=== PATIENT | male | born 1980 | race African-American/Black ===

== ENCOUNTER 2020-11-09 14:22 | Emergency (ER) | payer OTHER, SELFPAY ==
[2020-11-09 15:03] VITALS: BP 124/71; PULSE 55; RESP 18; TEMP 37; O2SAT 100; BMI 25.8
[2020-11-09 16:27] LABS: Influenza A PCR NEGATIVE (Negative); Influenza B PCR NEGATIVE (Negative); Resp Syncy Virus RNA Qual PCR NEGATIVE (Negative); SARS COV2 PCR INHOUSE NEGATIVE (Negative)
--- NOTE | 2020-11-09 19:53 | ED.URI ---
HPI - URI/Sore Throat General Chief Complaint: Upper Respiratory Symptoms Stated Complaint: mold exposure - chest pain Time Seen by Provider: 11/09/20 18:50 Source: patient Mode of arrival: ambulatory Limitations: no limitations History of Present Illness HPI Narrative: Patient comes to emergency room complaining of cough, wheezing. Patient states that his apartment is full of mold. Patient denies fever or chills. Patient states that he feels short of breath, states it upsets him because he cannot smoke marijuana. Related Data Allergies Allergy/AdvReac Type Severity Reaction Status Date / Time shellfish derived Allergy Swelling Verified 11/09/20 15:03 Review of Systems Review of Systems: Constitutional : No Weight loss, No Fever, No Chills, No Night Sweats, complaining of chronic fatigue ENT/Mouth : No Hearing loss, No Ear Pain, No Nasal Congestion, No Sinus Pain, No Hoarseness, No sore throat, No Rhinorrhea, No Swallowing Difficulty Eyes: No Eye Pain, No Swelling, No Redness, No Foreign Body, No Discharge, No Vision Changes Cardiovascular : No Chest Pain, no orthopnea, no palpitations Respiratory : Complaining of cough, denies sputum production complaining of wheezing, complaining of shortness of breath Gastrointestinal : No Nausea, No Vomiting, No Diarrhea, No Constipation, No abdominal Pain, No Hematochezia, No Melena Genitourinary : no irregular bleeding, No Dysuria, No Urinary Frequency, No Hematuria, No Urinary Incontinence, No Urgency, No Flank Pain, No Urinary Flow Changes, No Hesitancy Musculoskeletal : No joint pain, No Myalgias, No Joint Swelling Skin : No Skin Lesions, No rash Neuro : No Weakness, No Numbness, No Paresthesias, No Loss of Consciousness, No Dizziness, No Headache Psych : No Anxiety/Panic, No Depression, No SI/HI/AH/VH, No Social Issues, Heme/Lymph: No Bruising, No Bleeding,No Lymphadenopathy Endocrine : No Polyuria, No Polydipsia, No Temperature Intolerance PMFSH Social History Social History Advance Directives: No Advance Directives Information Provided: No Physical Exam Vital Signs: Vital Signs: Last Vital Signs Temp 98.6 F 11/09/20 15:03 Pulse 55 11/09/20 15:03 Resp 18 11/09/20 15:03 BP 124/71 11/09/20 15:03 Pulse Ox 100 11/09/20 15:03 Body Mass Index 25.8 Const: Other: Appearance: Alert. Oriented X3. No acute distress. Eyes: Pupils equal, round and reactive to light. ENT: Pharynx normal. Neck: Normal inspection. Neck supple. No lymph nodes noted. No crepitus CVS: Normal heart rate and rhythm. Pulses normal. Normal S1 and S2 Respiratory: No respiratory distress. Breath sounds normal. No Wheezing. No rales Abdomen: Soft and nontender. No rigidity. No distention. good BS x4 Skin: Skin warm and dry. Normal skin color. Normal skin turgor. Extremities: No lower extremity edema. No Lacerations. No Rash Neuro: Oriented X 3. No motor deficit. No sensory deficit. Moving all extermities. No slurred speech. Course Course Course Narrative: I discussed with the patient that his COVID test is negative. I also recommended to the patient that we should be doing chest x-ray, blood work, including a D-dimer. Patient states that he no longer wants to wait for all the blood work results and chest x-ray. Patient states that he wants to leave. Patient's vitals are normal, I discussed with the patient to discuss a mole situation with his landlord. Patient refusing any further workup. Patient leaving AMA I was informed by the patient's charge nurse that when he was waiting for his fevers, patient went up to the registration staff and calling bitches, being belligerent. Security escorted him out MDM - URI/Sore Throat Lab Data Labs: Lab Results 11/09/20 Range/Units 15:07 Coronavirus (PCR) NEGATIVE (Negative) Influenza Type A (PCR) NEGATIVE (Negative) Influenza Type B (PCR) NEGATIVE (Negative) RSV RNA Qual (PCR) NEGATIVE (Negative) Discharge Plan Discharge Clinical Impression: Dyspnea Patient Disposition: Left Against Medical Advice Instructions: Dyspnea (ED) Additional Instructions: Please follow-up with your primary care physician tomorrow. If you have any worsening or new symptoms, please return to the emergency room or call 911 Stand Alone Forms: Against Medical Advice Interventions: LWBS Worksheet Last Done: 11/09/20 18:55
--- NOTE | 2020-11-09 19:59 | PC.NURSE ---
per provider: Patient left without signing AMA forms.
== END 2020-11-09 20:00 | disposition left against medical advice (07) ==
PROVIDERS: Emergency Provider Emergency Medicine; PCP Nurse Practitioner Family
DX: R06.00 Dyspnea, unspecified (principal); Z20.822 Contact with and (suspected) exposure to COVID-19
CPT/HCPCS: 0241U; 36415; 99281; 99283

== ENCOUNTER 2023-04-11 00:11 | Emergency (ER) | payer OTHER, SELFPAY ==
[2023-04-11 00:23] VITALS: BP 137/77; PULSE 69; RESP 16; TEMP 36.6; O2SAT 95; BMI 27.6
[2023-04-11 00:38] VITALS: BP 126/70; PULSE 54; RESP 16; TEMP 36.7; O2SAT 96
--- NOTE | 2023-04-11 00:52 | ED_ITS ---
HPI - General Adult General Chief complaint: General Medical Stated complaint: ?Animal bite Time Seen by Provider: 04/11/23 00:33 Source: patient Mode of arrival: ambulatory Limitations: no limitations History of Present Illness HPI narrative: patient comes to the emergency room complaining of a tender nodule in the back. Patient states that he believes that something bit him, insect? . Patient denies injuries anywhere else. Patient denies fevers or chills Related Data Previous Rx's Medication Instructions Recorded ibuprofen 600 mg tablet 600 mg PO TID PRN fever or pain 04/11/23 #14 tabs sulfamethoxazole 800 1 tab PO BID #14 tabs 04/11/23 mg-trimethoprim 160 mg tablet (Bactrim DS) Allergies Allergy/AdvReac Type Severity Reaction Status Date / Time shellfish derived Allergy Swelling Verified 04/11/23 00:22 Review of Systems Review of Systems: Constitutional : No Weight loss, No Fever, No Chills, No Night Sweats, No Fatigue, No Malaise ENT/Mouth : No Hearing loss, No Ear Pain, No Nasal Congestion, No Sinus Pain, No Hoarseness, No sore throat, No Rhinorrhea, No Swallowing Difficulty Eyes: No Eye Pain, No Swelling, No Redness, No Foreign Body, No Discharge, No Vision Changes Cardiovascular : No Chest Pain, No SOB, No Dyspnea on Exertion, No Orthopnea, No Edema, No Palpitations Respiratory : No Cough, No Sputum, No Wheezing, No Smoke Exposure, No Dyspnea Gastrointestinal : No Nausea, No Vomiting, No Diarrhea, No Constipation, No abdominal Pain, No Hematochezia, No Melena Genitourinary : no irregular bleeding, No Dysuria, No Urinary Frequency, No Hematuria, No Urinary Incontinence, No Urgency, No Flank Pain, No Urinary Flow Changes, No Hesitancy Musculoskeletal : No joint pain, No Myalgias, No Joint Swelling Skin : complaining of painful nodule in the back /insect bite Neuro : No Weakness, No Numbness, No Paresthesias, No Loss of Consciousness, No Dizziness, No Headache Psych : No Anxiety/Panic, No Depression, No SI/HI/AH/VH, No Social Issues, Heme/Lymph: No Bruising, No Bleeding,No Lymphadenopathy Endocrine : No Polyuria, No Polydipsia, No Temperature Intolerance PMFSH Social History Social History Smoked in Last 30 Days: No Use of substances other than those prescribed or required for medical reasons: Yes Substance Use Type: Marijuana Substance Use Frequency: Chronic Longstanding Physical Exam ED Vital Signs: Vital Signs - 24 hr 04/11/23 00:23 04/11/23 00:38 Temperature 97.9 F 98.1 F Pulse Rate 69 54 Respiratory Rate 16 16 Blood Pressure 137/77 126/70 Pulse Oximetry 95 96 Oxygen Delivery Method Room Air Room Air BMI result Body Mass Index 27.6 Const Other: Appearance: Alert. Oriented X3. No acute distress. Eyes: Pupils equal, round and reactive to light. ENT: Pharynx normal. Neck: Normal inspection. Neck supple. No lymph nodes noted. No crepitus CVS: Normal heart rate and rhythm. Pulses normal. Normal S1 and S2 Respiratory: No respiratory distress. Breath sounds normal. No Wheezing. No rales Abdomen: Soft and nontender. No rigidity. No distention. Skin: 1 cm x 1 cm erythema in the back with a small opening. Small eschar on top Extremities: No lower extremity edema. No Lacerations. No Rash Neuro: Oriented X 3. No motor deficit. No sensory deficit. Moving all extremi ties. No slurred speech. CN 2 through 12 grossly intact Psych: calm, cooperative, normal affect Course Course Course Narrative: - the eschar was unroofed with a 16 gauge needle, a small amount of pus came out, less than 1 mL - patient was given p.o. antibiotics, Bactrim Medical Decision Making Medical Decision Making MDM Narrative: bedside ultrasound shows cobblestone like pattern, no deep abscess. Differential Diagnosis Differential Diagnoses: The differential diagnosis associated with the presentation includes ( insect bite, abscess, cellulitis) Discharge Plan Discharge Clinical Impression: Abscess Patient Disposition: Home, Self-Care Instructions: Abscess (ED) Additional Instructions: Please follow-up with your primary care physician tomorrow. If you have any worsening or new symptoms, please return to the emergency room or call 911 Prescriptions: New sulfamethoxazole-trimethoprim [Bactrim DS] 800-160 mg tablet 1 tab PO BID Qty: 14 0RF ibuprofen 600 mg tablet 600 mg PO TID PRN (Reason: fever or pain) Qty: 14 0RF
[2023-04-11] MEDS: Sulfamethox/Trimeth 800/160 TABLET 1 TAB PO (01:02)
[2023-04-11] MEDS: Acetaminophen 325 MG TABLET 650 MG PO (01:02)
== END 2023-04-11 01:05 | disposition home or self-care (01) ==
LOC: HO.ED 01:02
PROVIDERS: Emergency Provider Emergency Medicine
DX: L02.212 Cutaneous abscess of back [any part, except buttock and flank] (principal)
CPT/HCPCS: 99284

== ENCOUNTER 2025-01-05 22:20 | Emergency (ER) | payer OTHER, SELFPAY ==
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
[2025-01-05 22:22] VITALS: BP 115/55; PULSE 77; RESP 14; TEMP 35.8; O2SAT 96; BMI 27.4
--- OUTSIDE RECORDS SUMMARY | 2025-01-05 22:41 | XMS_ITS | Encounter Summary ---
Author Organization [id number] Address [address] [place] [address] Care Team Providers Care Arcade Games Mechanic Name Role Phone Marco A Alejo MD Primary Care Provider Unavail able Encounter Details Date Type Department Care Team Description 10/22/2017 Release of Information Medical Records [address] [place] [id number] Abstract, Provider Social History Tobacco Use Types Packs/Day Years Used Date Smoking Tobacco: Every Day Smokeless Tobacco: Never Comments:marijuana Alcohol Use Standard Drinks/Week Comments Yes 0 (1 standard drink = 0.6 oz pur e alcohol) cognac every now and then Sex Assigned at Date Recorded Not on file documented as of this encounter Plan of Treatment Not on file documented as of this encounter Visit Diagnoses Not on filedocumented in this encounter Care Teams Arcade Games Mechanic Relationship Specialty Start Date End Date Marco A Alejo MD PCP - General Internal Medicine 08/12/16 documented as of this encounter
--- OUTSIDE RECORDS SUMMARY | 2025-01-05 22:41 | XMS_ITS | Clinical Summary ---
Author Organization [facility] ity Address [address] [place] [address] Care Team Providers Care Load Test Mechanic Name Role Phone Marco A Alejo MD Primary Care Provider Unavaila ble Social History Tobacco Use Types Packs/Day Years Used Date Smoking Tobacco: Never Assessed Sex and Gender Information Value Date Recorded Sex Assigned at Not on file Legal Sex Male 5:39 AM EST Gender Identity Not on file Sexual Orientation Not on file Plan of Treatment Health Maintenance Due Date Last Done Comments DTaP,Tdap,and Td Vaccines (1 - Tdap) 2000 Hepatitis B Vaccines (1 of 3 - 19+ 3-dose series) 2000 HPV Vaccines (1 - 3-dose SCD M series) 2008 Cholesterol Screening (Lipid Panel) 11/09/2023 HIV Screening 11/09/2023 Hepatitis C Screening 11/09/2023 Social Influencers of Health Screening 11/09/2023 Depression Screening 03/16/2024 COVID-19 Vaccine ( - 2023-2 5 season) 2024 Influenza Vaccine (#1) 2024 RSV Immunization Adult Patie nts (1 - 1-dose 75+ series) 2056 HIB Vaccines Aged Out No longer eligi ble based on patient's age to complete this topic Hepatitis A Vaccines Aged Out No long er eligible based on patient's age to complete this topic IPV Vaccines Aged Out No longer eligi ble based on patient's age to complete this topic MMR Vaccines Aged Out No longer eligi ble based on patient's age to complete this topic Meningococcal ACWY Vaccine Aged Out N o longer eligible based on patient's age to complete this topic Meningococcal B Vaccine Aged Out No l onger eligible based on patient's age to complete this topic Pneumococcal Vaccine: Pediat rics (0 to 5 Years) and At-Risk Patients (6 to 49 Years) Aged Out No longer eligible b ased on patient's age to complete this topic RSV Immunization Patients Un rhonda 20 months Aged Out No longer eligible b ased on patient's age to complete this topic Varicella Vaccines Aged Out No longer eligible based on patient's age to complete this topic Advance Directives Documents on File Type Date Recorded Patient [employer] Tier Expl anation Health Care Decision (hx) 04/14/2023 [facility]OX[facility] Care Teams Load Test Mechanic Relationship Specialty Start Date End Date Marco A Alejo MD PCP - General Internal Medicine 08/12/16
--- OUTSIDE RECORDS SUMMARY | 2025-01-05 22:41 | XMS_ITS | Clinical Summary ---
Author Organization [facility] Address [address] [place] [address] Care Team Providers Care Double Ending Machine Operator Name Role Phone Marco A Alejo MD Primary Care Provider Unavail able Allergies No known active allergies Medications No known medications Active Problems Problem Noted Date Depression 09/08/2016 Family History Medical History Relation Name Comments Other Father Other Mother both parents de ceased from complications from HIV/AIDS Relation Name Status Comments Father Mother Social History Tobacco Use Types Packs/Day Years Used Date Smoking Tobacco: Every Day Smokeless Tobacco: Never Comments:marijuana Alcohol Use Standard Drinks/Week Comments Yes 0 (1 standard drink = 0.6 oz pur e alcohol) cognac every now and then Sex Assigned at Date Recorded Not on file Last Filed Vital Signs Vital Sign Reading Time Taken Comments Blood Pressure 122/82 09/08/2016 1:44 PM EDT Pulse 78 09/08/2016 1:44 PM EDT Temperature - - Respiratory Rate - - Oxygen Saturation - - Inhaled Oxygen Concentration - - Weight 78.8 kg (173 lb 11.2 oz) 09/08/2016 1:44 PM EDT Height 172.7 cm (5' 8 ) 09/08/2016 1:44 PM EDT Body Mass Index 26.41 09/08/2016 1:44 PM EDT Plan of Treatment Health Maintenance Due Date Last Done Comments Covid-19 Vaccine (#1) 1981 TOBACCO CHECK/ADVISE 1999 DTAP/TDAP/TD (1 - Tdap) 2000 CHOLESTEROL SCREENING 2001 BASELINE HEALTH EXAM 40-64 2021 BMI CHECK/ADVISE 03/16/2024 INFLUENZA (#1) 2024 PNEUMOCOCCAL VACCINE FOR HIGH RISK PATIENTS (#1) 04/06 Care Teams Double Ending Machine Operator Relationship Specialty Start Date End Date Marco A Alejo MD PCP - General Internal Medicine 08/12/16
--- OUTSIDE RECORDS SUMMARY | 2025-01-05 22:41 | XMS_ITS | Clinical Summary ---
Author Organization [facility] Address [address] [place] [address] Care Team Providers Care System Development Manager Name Role Phone MominCynthia NP Primary Care Provider [phone] Encounters Date Type Department Care Team Description 10/24/2024 2:30 PM EDT Office Visit [facility], [address] [place] [phone] Amita Daniel MD Chronic kidney disease, stage 2 (mild) (Primary Dx) 10/11/2024 Orders Only [facility] [address] [place] [phone] Elise Salinas MA Stage 3 chronic kidney disease, not otherwise specified (HCC) (Primary Dx); Anemia in chronic kidney disease from Last 3 Months Social History Tobacco Use Types Packs/Day Years Used Date Smoking Tobacco: Never Assessed Sex and Gender Information Value Date Recorded Sex Assigned at Not on file Legal Sex Male 10:07 AM EST Gender Identity Not on file Sexual Orientation Not on file Last Filed Vital Signs Vital Sign Reading Time Taken Comments Blood Pressure 110/60 10/24/2024 4:21 PM EDT Pulse - - Temperature - - Respiratory Rate - - Oxygen Saturation - - Inhaled Oxygen Concentration - - Weight - - Height - - Body Mass Index - - Plan of Treatment Upcoming Encounters Date Type Department Care Team (Late st Contact Info) Description 10/30/2025 1:30 PM EDT Office Visit [facility] [address] [place] [phone] Amita Daniel MD [address] [place] [address] [place] [address] Health Maintenance Due Date Last Done Comments Hepatitis B Vaccine (1 of 3 - 19+ 3-dose series) 04/06 Pneumococcal Vaccine: Peds ( 0 to 5 Years) and At-Risk Patients (6 to 49 Years) (1 of 2 - PCV) 2000 Influenza Vaccine (#1) 2024 Procedures Procedure Name Priority Date/Time Associated Diagnosis Comments CBC AND DIFFERENTIAL Routine 11/01/2024 11:06 AM EDT Chronic kidney disease, stage 2 (mild) URINE ALBUMIN / CREATININE RATIO Routine 11/01/2024 11:06 AM EDT Chronic kidney disease, stage 2 (mild) URINALYSIS WITH MICROSCOPIC Routine 11/01/2024 11:06 AM EDT Chronic kidney disease, stage 2 (mild) RENAL FUNCTION PANEL Routine 11/01/2024 11:06 AM EDT Chronic kidney disease, stage 2 (mild) MICROSCOPIC EXAMINATION - DO NOT USE Routine 11/01/2024 11:06 AM EDT from Last 3 Months Results * Microscopic Examination (11/01/2024 11:06 AM EDT) WBC, Urine None seen 0 - 5 /hpf [facility] RBC, Urine None seen 0 - 2 /hpf [facility] Squamous Epithelial, Urine None seen 0 - 10 /hpf [facility] Casts None seen None seen /lpf [facility] Bacteria, Urine None seen None seen/Few [facility] 11/01/2024 11:0 6 AM EDT 11/01/2024 Iglesia Donohue MD LAB MICROBIOLOGY - GENERAL ORDERABLES Final Result Performing Organization Address City[facility]/ZIP Co de Phone Number [facility] [address] [place] [address] * Urine Albumin / Creatinine Ratio (11/01/2024 11:06 AM EDT) Creatinine, Ur 107.4 Not Estab. mg/dL [facility] Albumin, Urine 3.0 Not Estab. ug/mL [facility] Albumin/Creatin ine Ratio 3 0 - 29 mg/g creat [facility] Comment: Normal: 0 - 29 Moderately increased: 30 - 300 Severely increased: >300 Urine Urine specimen obtained by clean catch procedure / Unknown 11/01/2024 11:06 AM EDT 11/01/2024 Iglesia Donohue MD LAB URINE ORDERABLES Final Result Performing Organization Address [facility] Co de Phone Number [facility] [address] [place] [address] * Urinalysis with microscopic (11/01/2024 11:06 AM EDT) Specific [place], Urine 1.011 1.005 - 1.030 [facility] [phone] pH Urine 6.5 5.0 - 7.5 [facility] Color, Urine Yellow Yellow [facility] Appearance Urine Clear Clear [facility] WBC Esterase Urine Negative Negative [facility] Protein, Ur Negative Negative/Tra ce [facility] [phone] Glucose, Ur Negative Negative [facility] Ketones, Urine Negative Negative [facility] [phone] Blood Urine Negative Negative [facility] Bilirubin Urine Negative Negative [facility] Urobilinogen Urine 0.2 0.2 - 1.0 mg/dL [facility] Nitrite, Urine Negative Negative [facility] Microscopic Examination Comment [facility] Comment:Microscopic follows if indicated. Other Microsc. Observations See below: [facility] [phone] Comment:Microscopic was fernando cated and was performed. Urine Urine specimen obtained by clean catch procedure / Unknown 11/01/2024 11:06 AM EDT 11/01/2024 us Iglesia Donohue MD LAB URINE ORDERABLES Final Result [facility] [address] [place] [address] * CBC and differential (11/01/2024 11:06 AM EDT) WBC 5.3 3.4 - 10.8 x10E3/uL [facility] RBC 4.23 4.14 - 5.80 x10E6/uL [facility] Hemoglobin 13.5 13.0 - 17.7 g/dL [facility] Hematocrit 41.1 37.5 - 51.0 % [facility] MCV 97 79 - 97 fL [facility] MCH 31.9 26.6 - 33.0 pg [facility] MCHC 32.8 31.5 - 35.7 g/dL [facility] RDW 12.3 11.6 - 15.4 % [facility] Platelets 189 150 - 450 x10E3/uL [facility] Neutrophils Relative 49 Not Estab. % [facility] Lymphocytes Relative 38 Not Estab. % [facility] Monocytes 12 Not Estab. % [facility] Eosinophils Relative 1 Not Estab. % [facility] Basophils Relative 0 Not Estab. % [facility] Neutrophils Absolute 2.6 1.4 - 7.0 x10E3/uL [facility] Lymphocytes Absolute 2.0 0.7 - 3.1 x10E3/uL [facility] Monocytes Absolute 0.6 0.1 - 0.9 x10E3/uL [facility] Eosinophils Absolute 0.0 0.0 - 0.4 x10E3/uL [facility] Basophils Absolute 0.0 0.0 - 0.2 x10E3/uL [facility] Immature Granulocytes 0 Not Estab. % [facility] Immature Grans (Absolute) 0.0 0.0 - 0.1 x10E3/uL [facility] Blood Venous blood / Unknown 11/01/2024 11:06 AM EDT 11/01/2024 us Iglesia Donohue MD LAB BLOOD ORDERABLES Final Result [facility] [address] [place] [address] * (ABNORMAL) Renal function panel (11/01/2024 11:06 AM EDT) Glucose 92 70 - 99 mg/dL [facility] BUN 10 6 - 24 mg/dL [facility] Creatinine 1.40(H) 0.76 - 1.27 mg/dL [facility] eGFR CKD-EPI CR 2020 64 >59 mL/min/1.7 3 [facility] BUN/Creatinine Ratio 7(L) 9 - 20 [facility] Sodium 143 134 - 144 mmol/L [facility] Potassium 4.5 3.5 - 5.2 mmol/L [facility] Chloride 106 96 - 106 mmol/L [facility] Bicarbonate (CO2) 21 20 - 29 mmol/L [facility] Calcium 9.3 8.7 - 10.2 mg/dL [facility] Albumin 4.5 4.1 - 5.1 g/dL [facility] Phosphorus 3.0 2.8 - 4.1 mg/dL [facility] Blood Venous blood / Unknown 11/01/2024 11:06 AM EDT 11/01/2024 us Iglesia Donohue MD LAB BLOOD ORDERABLES Final Result [facility] [address] [place] [address] from Last 3 Months Insurance [facility] Medicaid Care Teams System Development Manager Relationship Specialty Start Date End Date Cynthia Momin NP [address] [place] [address] PCP - General Wood Box Maker 10/24/24
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
[2025-01-06 00:40] VITALS: BP 109/59; PULSE 58; RESP 18; TEMP 36.2; O2SAT 95
== END 2025-01-06 00:41 | disposition home or self-care (01) ==
PROVIDERS: Emergency Provider Emergency Medicine; PCP Nurse Practitioner Family
DX: S09.90XA Unspecified injury of head, initial encounter (principal); M25.512 Pain in left shoulder; M54.2 Cervicalgia; R51.9 Headache, unspecified; V89.0XXA Person injured in unspecified motor-vehicle accident, nontraffic, initial encounter; Y93.9 Activity, unspecified; Y92.481 Parking lot as the place of occurrence of the external cause; Y99.8 Other external cause status
CPT/HCPCS: 70450; 72125; 73000; 96372; 99284; J1885

== ENCOUNTER → 2025-01-05 22:59 | Outpatient (BNV) | payer OTHER, SELFPAY | PROVIDERS: Emergency Provider Emergency Medicine; PCP Nurse Practitioner Family; Visit Provider Radiology Diagnostic Radiology | DX: M54.2 Cervicalgia (principal); S09.90XA Unspecified injury of head, initial encounter; M25.512 Pain in left shoulder; V89.0XXA Person injured in unspecified motor-vehicle accident, nontraffic, initial encounter | CPT/HCPCS: 70450; 72125; 73000 ==